=== PATIENT | male | born 1970 | race Caucasian/White ===

== ENCOUNTER 2017-05-10 09:44 | Emergency (ER) | payer BC ==
[~2017-05-10] VITALS: Ht 177.8 cm; Wt 80.7 kg
--- NOTE | 2017-05-10 10:11 | PHYS DOC ---
Past History Past Medical History: No Pertinent History Past Surgical History: No Surgical History Alcohol Use: None Drug Use: Marijuana Adult General Chief Complaint Chief Complaint: DIZZY/LIGHT HEADED HPI HPI Patient is a 46 year old male who presents with dizziness & palpitations. The patient reports 3 day history of intermittent sensation of racing heartbeat. He reports tingling in his toes. He feels anxious. He denies fevers/chills, chest pain, shortness of breath, nausea, vomiting, diarrhea, extremity weakness , lower extremity pain/swelling. He has previous history of anxiety & used to take xanax. He uses marijuana & tobacco, denies other street drugs. Otherwise no known past medical history. Denies family history of CAD or DVT/PE. Has not had a PCP for several years. Review of Systems Review of Systems Constitutional: Denies fever or chills, reports dizziness. Eyes: Denies change in visual acuity HENT: Denies nasal congestion or sore throat Respiratory: Denies cough or shortness of breath Cardiovascular: Denies chest pain or edema, reports palpitations GI: Denies abdominal pain, nausea, vomiting, bloody stools or diarrhea Musculoskeletal: Denies back pain or joint pain Integument: Denies rash or skin lesions Neurologic: Denies headache, focal weakness or sensory changes Psychiatric: Reports anxiety. All other systems were reviewed and found to be within normal limits, except as documented in this note. Current Medications Current Medications Current Medications Medications (Trade) Dose Ordered Sig/Luis Start Time Stop Time Status Last Admin Dose Admin Aspirin (Children'S Aspirin) 324 mg 1X ONCE 05/10/17 10:15 05/10/17 10:16 UNV Lorazepam (Ativan) 1 mg 1X ONCE 05/10/17 10:15 05/10/17 10:16 UNV Sodium Chloride 1,000 ml @ 1,000 mls/hr 1X ONCE 05/10/17 10:15 05/10/17 11:14 UNV Allergies Allergies Allergies Coded Allergies Type Severity Reaction Last Updated Verified No Known Drug Allergies 05/10/17 No Physical Exam Physical Exam Constitutional: Well developed, well nourished, no acute distress, non-toxic appearance. HENT: Normocephalic, atraumatic, bilateral external ears normal, oropharynx moist, nose normal. Eyes: conjunctiva normal, no discharge. Neck: supple, no stridor. Cardiovascular: RRR, no murmurs, no edema. Lungs & Thorax: LCTAB, no wheezing, no respiratory distress. Abdomen: soft, nontender, nondistended. Skin: Warm, dry, no erythema, no rash. Back: No tenderness. Extremities: No tenderness, no edema. no calf tenderness or swelling, distal pulses palpable in lower extremities. Neurologic: Alert and oriented X 3, symmetric strength/sensation to extremities , no focal deficits noted. Psychologic: anxious Current Patient Data Vital Signs Vital Signs Date Time Temp Pulse Resp B/P (MAP) Pulse Ox O2 Delivery O2 Flow Rate FiO2 05/10/17 09:44 98.2 89 20 98 Room Air EKG EKG interpreted by me: [id number]: normal sinus rhythm rate 87, no acute ST/T wave changes, normal intervals, no ectopy.[] Radiology/Procedures Radiology/Procedures PROCEDURE: CHEST PA & LATERAL Indication: Palpitations. Time of exam 10:28 AM FINDINGS: The heart size is normal. The lungs are clear. No pleural effusion or pneumothorax is identified. The pulmonary vascularity is normal. IMPRESSION: No acute abnormality detected. DICTATED AND SIGNED BY: MARILYN JORGE MD DATE: 05/10/17 1038[] Course & Med Decision Making Course & Med Decision Making Pertinent Labs and Imaging studies reviewed. (See chart for details) The patient presents with palpitations & lightheadedness. High normal heart rate with sinus rhythm, no arrhythmia or tachycardia here. No focal findings on exam. He feels anxious & has history of anxiety. Obtained labs, EKG, CXR. He had no significant abnormalities. Gave ativan & IV fluids, & heart rate improved to 60s-70s. He felt better. Recommend re-establish care with PCP for further workup if needed, potentially management of anxiety if symptoms recur. Please make an appointment to be seen within 1 week. Come back for severe chest pain or palpitations, shortness of breath, focal neuro deficit, any otherwise worsening condition. Discharged home in stable condition. [] Dragon Disclaimer Dragon Disclaimer This electronic medical record was generated, in whole or in part, using a voice recognition dictation system. Departure Departure: Impression: Primary Impression: Palpitations Disposition: 01 HOME, SELF-CARE Condition: STABLE Referrals: ANASTASIA CHRISTENSEN (PCP) Patient Instructions: Palpitations, [id number] Additional Instructions: You were seen in the emergency department today for palpitations. your tests here did not show a serious cause of your symptoms. As we discussed, your symptoms could be related to anxiety/panic attack, but it is important to establish care with a primary doctor for further evaluation of medical causes. A primary doctor can help you manage anxiety if this is the diagnosis. Please rest, drink fluids, make a follow up appointment within a week. Come back for severe shortness of breath or chest pain, fast heart rate, suicidal thoughts, any otherwise worsening condition. MARY MEDRANO MD May 10, 2017 10:11
[2017-05-10] MEDS ORDERED: IV NORMAL SALINE 1,000ML 1,000 ML IV ONE (10:15)
[2017-05-10 10:21] LABS: BASO # 0.1 x10^3/uL (0.0-0.2); BASO % 1 % (0-3); EOS # 0.1 x10^3/uL (0.0-0.7); EOS % 1 % (0-3); HEMATOCRIT 48.3 % (39.0-53.0); HEMOGLOBIN 16.9 g/dL (13.0-17.5); LYMPH # 2.5 x10^3/uL (1.0-4.8); LYMPH % 24 % (24-48); MEAN CORPUSCULAR HEMOGLOBIN 34 pg (25-35); MEAN CORPUSCULAR HGB CONC 35 g/dL (31-37); MEAN CORPUSCULAR VOLUME 97 fL (79-100); MONO % 9 % (0-9); NEUT # 6.9 x10^3uL (1.8-7.7); NEUT % 66 % (31-73); PLATELET COUNT 238 x10^3/uL (140-400); RED BLOOD COUNT 5.01 x10^6/uL (4.30-5.70); RED CELL DISTRIBUTION WIDTH 13.4 % (11.5-14.5); WHITE BLOOD COUNT 10.5 x10^3/uL (4.0-11.0)
[2017-05-10] MEDS ORDERED: ASPIRIN 81 MG TAB.CHEW PO ONE (10:40)
[2017-05-10] MEDS ORDERED: LORazepam 1 MG TABLET PO ONE (10:40)
--- NOTE | 2017-05-10 10:41 | RAD ---
Indication: Palpitations. Time of exam 10:28 AM FINDINGS: The heart size is normal. The lungs are clear. No pleural effusion or pneumothorax is identified. The pulmonary vascularity is normal. IMPRESSION: No acute abnormality detected.
[2017-05-10 10:42] LABS: ALBUMIN 4.1 g/dL (3.4-5.0); ALBUMIN/GLOBULIN RATIO 1.2 (1.0-1.7); CALCIUM 9.1 mg/dL (8.5-10.1); CREATININE 1.1 mg/dL (0.7-1.3); GFR 72.4; POTASSIUM 4.2 mmol/L (3.5-5.1); TOTAL BILIRUBIN 0.6 mg/dL (0.2-1.0); TOTAL PROTEIN 7.5 g/dL (6.4-8.2)
[2017-05-10 10:50] LABS: AMPHETAMINE/METHAMPHETAMINE NEG (NEG); BARBITURATES NEG (NEG); BENZODIAZEPINES NEG (NEG); CANNABINOIDS POS (NEG); COCAINE NEG (NEG); METHADONE NEG (NEG); OPIATES NEG (NEG); PHENCYCLIDINE NEG (NEG)
[2017-05-10 11:25] VITALS: BP 110/71
--- NOTE | 2017-05-10 13:07 | EKG ---
[address] [address] Test Date: 2017-05-10 Test Time: 09:58:03 Pat Name: LEYDA JOHNSON Department: Room: Gender: M Materials Planning Manager: PATRICIA : 1970 Requested By: MARY MEDRANO Order Number: [id number] Reading MD: Measurements Intervals [place] Rate: 87 P: 48 MS: 144 QRS: 78 QRSD: 100 T: 34 QT: 364 QTc: 444 Interpretive Statements SINUS RHYTHM QRS(T) CONTOUR ABNORMALITY CONSIDER ANTEROLATERAL MYOCARDIAL DAMAGE POSSIBLY ABNORMAL ECG RI6.01 Unconfirmed report No previous ECG available for comparison
== END 2017-05-10 11:37 | disposition home or self-care (01) ==
LOC: ER 09:44
DX: R00.2 Palpitations (principal); R42 Dizziness and giddiness; F41.9 Anxiety disorder, unspecified; F12.10 Cannabis abuse, uncomplicated
CPT/HCPCS: 36415; 71020; 80053; 80307; 83880; 84443; 84484; 85025; 93005; 96360; 99285-25; G0479; J7030